=== PATIENT | female | born 1990 | race Hispanic/Latino ===

== ENCOUNTER 2017-12-16 20:21 | Emergency (ER) | payer OTHER, SELFPAY ==
[2017-12-16 20:51] LABS: #Basophils 0.1 thou/uL (0.0-0.2); #Eosinphils 0.2 thou/uL (0.0-0.7); #Lymphocytes 4.8 thou/uL (1.20-3.40); #Monocytes 0.8 thou/uL (0.11-0.59); #Neutrophils 8.3 thou/uL (1.40-6.50); %Basophils 0.7 % (0.0-1.0); %Eosinophils 1.1 % (0.0-10.0); %Lymphocytes 33.8 % (21.0-51.0); %Monocytes 5.6 % (0.0-10.0); %Neutrophils 58.9 % (42.0-75.0); Mean Corpuscular HGB CONC 33.1 g/dL (32.0-36.0); Mean Corpuscular Hemoglobin 27.8 pg (27.0-31.0); Mean Corpuscular Volume 84.1 fl (81.0-99.0); Mean Platelet Volume 6.6 fL (7.4-10.4); Platelet Count 419 thou/uL (130-400); RBC Distribution Width 13.9 % (11.5-14.5); Red Blood Cell (RBC) Count 4.66 mill/uL (4.20-5.40); White Blood Cell (WBC) Count 14.1 thou/uL (4.8-10.8)
[2017-12-16 20:58] LABS: BHCG - Serum POSITIVE (NEGATIVE); Pregs Control Bar Appear? YES (CONTROL BAR)
[2017-12-16 20:59] LABS: Pregs Control Background? CLEAR/WHITE (CLR/WHITE)
[2017-12-16 21:19] LABS: Bilirubin Negative (Negative); Blood, Urine Moderate (Negative); Clarity CLEAR (Clear); Glucose, Urine (Dipstick) Negative (Negative); Leukocyte Moderate (Negative); Nitrite Negative (Negative); Protein, Urine (Dipstick) Negative (Neg-Trace); Specific Gravity, Urine 1.029 (1.002-1.036); pH, Urine 5.5 (5.0-9.0)
[2017-12-16 21:20] LABS: Bacteria/HPF Rare-Few HPF (None Seen); Hyaline Casts/LPF 0-3 HYALINE CAST LPF (0-3 Hyaline); Pathc Cast-AUWi Flag 0.27 (0-2.49)
[2017-12-16] MEDS ORDERED: Cephalexin 250 MG CAP ONE ×2 (22:41→22:42)
--- NOTE | 2017-12-16 23:47 | ULT ---
PELVIC ULTRASOUND: 12/16/17 Endovaginal ultrasound of pelvis performed. INDICATIONS: Early with vaginal spotting. FINDINGS: There is a retroverted uterus. There is a single viable intrauterine . Gestational age by cr own-rump length indicates 8 week, 1 day gestational age. heart rate is recorded at 163 beats pe r minute. Gestational sac appears unremarkable. A yolk sac is identified. A hypoechoic area is seen i n the lower uterine segment which may represent small subchorionic hemorrhage. The material ovaries a re identified and appear unremarkable. Color doppler and spectral analysis shows blood flow to both o varies. IMPRESSION: Viable intrauterine . Fontanelle-rump length indicates an 8 week, 1 day gestational age. Question small subchorionic hemorrhage in the lower uterine segment. Followup is suggested. POS: INES
== END 2017-12-16 23:40 | disposition home or self-care (01) ==
LOC: ERS 20:21
DX: O20.0 Threatened abortion (principal); O23.41 Unspecified infection of urinary tract in pregnancy, first trimester; O99.211 Obesity complicating pregnancy, first trimester; Z3A.08 8 weeks gestation of pregnancy
CPT/HCPCS: 36415; 76856; 81003; 81015; 84702; 84703; 85025; 86850; 86900; 86901